=== PATIENT | male | born 1945 | race Caucasian/White ===

== ENCOUNTER 2018-12-09 10:37 | Outpatient (CLI) | payer MEDICARE ==
[2018-12-09 12:19] LABS: ALBUMIN 3.6 G/DL (3.4-5.0); ANION GAP 6 (8-16); BLOOD UREA NITROGEN 15 MG/DL (7-18); BUN/CREATININE RATIO 16.3 (5.4-32.0); CALCIUM 9.3 MG/DL (8.5-10.1); CHLORIDE 105 MMOL/L (99-107); CREATININE 0.92 MG/DL (0.60-1.10); GLUCOSE 81 MG/DL (70-104); SODIUM 141 MMOL/L (135-145); TOTAL CARBON DIOXIDE 29.8 MMOL/L (24-32); eGFR 80 ML/MIN
== END 2018-12-09 23:59 | disposition home or self-care (01) ==
LOC: LAB 10:37
PROVIDERS: ATTEND Thoracic Surgery (Cardiothoracic Vascular Surgery)
DX: I71.2 Thoracic aortic aneurysm, without rupture (principal); Z87.891 Personal history of nicotine dependence
CPT/HCPCS: 36415; 80048

== ENCOUNTER 2018-12-09 14:40 | Outpatient (CLI) | payer MEDICARE ==
[2018-12-09] MEDS ORDERED: iohexol 350MG/ML 100ml bottle IV ONE (14:54)
== END 2018-12-09 23:59 | disposition home or self-care (01) ==
LOC: 64 CT 14:40
PROVIDERS: ATTEND Thoracic Surgery (Cardiothoracic Vascular Surgery)
DX: I71.2 Thoracic aortic aneurysm, without rupture (principal); Z87.891 Personal history of nicotine dependence
CPT/HCPCS: 71275; Q9967